=== PATIENT | male | born 1955 | race Caucasian/White ===

== ENCOUNTER 2018-02-10 10:15 | Emergency (ER) | payer SELFPAY ==
[~2018-02-10] VITALS: Ht 162.6 cm; Wt 62.0 kg
[~2018-02-10 10:15] MED LIST: LORT5TAB PO; METH500T3 PO
[2018-02-10 10:18] VITALS: BP 95/60; PULSE 57; RESP 17; TEMP 98.2; O2SAT 97
[2018-02-10 10:29] VITALS: O2SAT 100
[2018-02-10] MEDS ORDERED: SODIUM CHLOR 0.9% 1000 ML INJ 1,000 ML IV ONE (10:30)
[2018-02-10] MEDS ORDERED: LIDOCAINE 1%/EPINEPHrine 1:100,000 SOLN 50 ML VIAL INFIL ONE (10:30)
[2018-02-10] MEDS ORDERED: SUBO8MIS SL (10:30)
[2018-02-10] MEDS ORDERED: LIDOCAINE 1%/EPINEPHrine 1:100,000 SOLN 20 ML VIAL INFIL ONE (10:30)
[2018-02-10] MEDS ORDERED: TETANUS/DIPHTHERIA TOXOID ADULT 0.5 ML VIAL IM ONE (10:30)
--- NOTE | 2018-02-10 10:32 | PD ---
HPI Chief Complaint: Laceration/Skin Injury Time Seen by Provider: 10:23 Travel History International Travel<30 days: No Contact w/Intl Traveler<30days: No Traveled to known affect area: No History of Present Illness HPI 62-year-old male complains of laceration the right forearm. Patient accidentally lacerated his right forearm at work this morning. Patient states that he had moderate amount of blood from the wound at the scene. Pressure was applied to the wound patient came to ED for evaluation. Patient states that he is not up-to-date with TD booster. Patient denies any weakness or numbness of the forearm on the hand or the fingers. PFSH Past Medical History Arthritis: Yes Social History Alcohol Use: Yes (2-3 BEERS A DAY.) Tobacco Use: Yes (1 PPD) Substance Use: No Allergies-Medications (Allergen,Severity, Reaction): Coded Allergies: No Known Allergies (Verified Adverse Reaction, Unknown, 02/10/18) Reported Meds & Prescriptions Reported Meds & Active Scripts Active Reported Suboxone Sublingual Film (Buprenorphine-Naloxone Sublingual Film) 8-2 Mg Film 1 Film SL Unique ID number required: Review of Systems General / Constitutional: No: Fever Eyes: No: Visual changes HENT: No: Headaches Cardiovascular: No: Chest Pain or Discomfort Respiratory: No: Shortness of Breath Gastrointestinal: No: Abdominal Pain Genitourinary: No: Dysuria Musculoskeletal: No: Pain Skin: No Rash Neurologic: No: Weakness Psychiatric: No: Depression Endocrine: No: Polydipsia Hematologic/Lymphatic: No: Easy Bruising Physical Exam Narrative GENERAL: Well-nourished, well-developed patient. SKIN: Focused skin assessment warm/dry. HEAD: Normocephalic. EYES: No scleral icterus. No injection or drainage. NECK: Supple, trachea midline. No JVD or lymphadenopathy. CARDIOVASCULAR: Regular rate and rhythm without murmurs, gallops, or rubs. RESPIRATORY: Breath sounds equal bilaterally. No accessory muscle use. GASTROINTESTINAL: Abdomen soft, non-tender, nondistended. MUSCULOSKELETAL: No cyanosis, or edema. BACK: Nontender without obvious deformity. No CVA tenderness. Patient has 12 cm laceration the right forearm. The laceration deep to the muscle area. No active bleeding. Sensory motor function distally intact. Good radial pulses. Data Data Last Documented VS Vital Signs Date Time Temp Pulse Resp B/P (MAP) Pulse Ox O2 Delivery O2 Flow Rate FiO2 02/10/18 10:29 100 Room Air 02/10/18 10:18 98.2 57 17 95/60 (72) Orders Orders Sodium Chlor 0.9% 1000 Ml Inj (Ns 1000 M (02/10/18 10:30) Tetanus/Diphtheria Tox Adult (Tetanus/Di (02/10/18 10:30) Lidocai-Epi 1%-1:100,000 Inj (Xylocaine- (02/10/18 10:30) Lidocai-Epi 1%-1:100,000 Inj (Xylocaine- (02/10/18 10:30) Complete Blood Count With Diff (02/10/18 10:26) Basic Metabolic Panel (Bmp) (02/10/18 10:26) Iv Access Insert/Monitor (02/10/18 10:26) Ecg Monitoring (02/10/18 10:26) Oximetry (02/10/18 10:26) Labs Laboratory Tests Test 02/10/18 10:28 White Blood Count 8.2 TH/MM3 Red Blood Count 4.32 MIL/MM3 Hemoglobin 14.1 GM/DL Hematocrit 42.0 % Mean Corpuscular Volume 97.3 FL Mean Corpuscular Hemoglobin 32.8 PG Mean Corpuscular Hemoglobin Concent 33.7 % Red Cell Distribution Width 13.7 % Platelet Count 265 TH/MM3 Mean Platelet Volume 7.4 FL Neutrophils (%) (Auto) 50.7 % Lymphocytes (%) (Auto) 36.1 % Monocytes (%) (Auto) 10.8 % Eosinophils (%) (Auto) 1.9 % Basophils (%) (Auto) 0.5 % Neutrophils # (Auto) 4.2 TH/MM3 Lymphocytes # (Auto) 3.0 TH/MM3 Monocytes # (Auto) 0.9 TH/MM3 Eosinophils # (Auto) 0.2 TH/MM3 Basophils # (Auto) 0.0 TH/MM3 CBC Comment DIFF FINAL Differential Comment Blood Urea Nitrogen 15 MG/DL Creatinine 1.11 MG/DL Random Glucose 128 MG/DL Calcium Level 9.1 MG/DL Sodium Level 141 MEQ/L Potassium Level 3.6 MEQ/L Chloride Level 106 MEQ/L Carbon Dioxide Level 26.3 MEQ/L Anion Gap 9 MEQ/L Estimat Glomerular Filtration Rate 67 ML/MIN MDM Medical Decision Making Medical Screen Exam Complete: Yes Emergency Medical Condition: Yes Differential Diagnosis Differential diagnosis including laceration, nerve injury, ligament injury, tendon injury. Narrative Course 62-year-old male with right forearm laceration. Td booster given. Normal saline solution 1 L IV bolus. Diagnosis Primary Impression: Laceration of right forearm Patient Instructions: General Instructions Additional Instructions: Wound care daily. Suture removal in 14 days. Med/Other Pt SpecificInfo: Prescription(s) given Scripts Cephalexin (Keflex) 500 Mg Capsule 500 MG PO TID for Infection, #15 CAP 0 Refills Prov: Ollie Shah MD 02/10/18 Disposition: 01 DISCHARGE HOME Condition: Stable Ollie Shah MD February 10, 2018 10:32
[2018-02-10 11:12] LABS: AUTOMATED NEUTROPHIL # 4.2 TH/MM3 (1.8-7.7); BASOPHIL % 0.5 % (0.0-2.0); EOSINOPHIL # 0.2 TH/MM3 (0-0.4); EOSINOPHIL % 1.9 % (0.0-4.0); HEMOGLOBIN 14.1 GM/DL (13.0-17.0); LYMPH % 36.1 % (9.0-44.0); MEAN CELL VOLUME 97.3 FL (80.0-100.0); MEAN CORPUSCULAR HEMOGLOBIN 32.8 PG (27.0-34.0); MEAN CORPUSCULAR HGB CONC 33.7 % (32.0-36.0); MEAN PLATELET VOLUME 7.4 FL (7.0-11.0); MONO % 10.8 % (0.0-8.0); MONOCYTE # 0.9 TH/MM3 (0-0.9); NEUT % 50.7 % (16.0-70.0); PLATELET COUNT 265 TH/MM3 (150-450); RED BLOOD COUNT 4.32 MIL/MM3 (4.50-5.90); RED CELL DISTRIBUTION WIDTH 13.7 % (11.6-17.2); WHITE BLOOD COUNT 8.2 TH/MM3 (4.0-11.0)
[2018-02-10 11:30] LABS: BICARBONATE 26.3 MEQ/L (21.0-32.0); CALCIUM 9.1 MG/DL (8.5-10.1); CREATININE 1.11 MG/DL (0.60-1.30)
--- NOTE | 2018-02-10 12:00 | PD ---
Data Data Last Documented VS Vital Signs Date Time Temp Pulse Resp B/P (MAP) Pulse Ox O2 Delivery O2 Flow Rate FiO2 02/10/18 10:29 100 Room Air 02/10/18 10:18 98.2 57 17 95/60 (72) Orders Orders Sodium Chlor 0.9% 1000 Ml Inj (Ns 1000 M (02/10/18 10:30) Tetanus/Diphtheria Tox Adult (Tetanus/Di (02/10/18 10:30) Lidocai-Epi 1%-1:100,000 Inj (Xylocaine- (02/10/18 10:30) Lidocai-Epi 1%-1:100,000 Inj (Xylocaine- (02/10/18 10:30) Complete Blood Count With Diff (02/10/18 10:26) Basic Metabolic Panel (Bmp) (02/10/18 10:26) Iv Access Insert/Monitor (02/10/18 10:26) Ecg Monitoring (02/10/18 10:26) Oximetry (02/10/18 10:26) Labs Laboratory Tests Test 02/10/18 10:28 White Blood Count 8.2 TH/MM3 Red Blood Count 4.32 MIL/MM3 Hemoglobin 14.1 GM/DL Hematocrit 42.0 % Mean Corpuscular Volume 97.3 FL Mean Corpuscular Hemoglobin 32.8 PG Mean Corpuscular Hemoglobin Concent 33.7 % Red Cell Distribution Width 13.7 % Platelet Count 265 TH/MM3 Mean Platelet Volume 7.4 FL Neutrophils (%) (Auto) 50.7 % Lymphocytes (%) (Auto) 36.1 % Monocytes (%) (Auto) 10.8 % Eosinophils (%) (Auto) 1.9 % Basophils (%) (Auto) 0.5 % Neutrophils # (Auto) 4.2 TH/MM3 Lymphocytes # (Auto) 3.0 TH/MM3 Monocytes # (Auto) 0.9 TH/MM3 Eosinophils # (Auto) 0.2 TH/MM3 Basophils # (Auto) 0.0 TH/MM3 CBC Comment DIFF FINAL Differential Comment Blood Urea Nitrogen 15 MG/DL Creatinine 1.11 MG/DL Random Glucose 128 MG/DL Calcium Level 9.1 MG/DL Sodium Level 141 MEQ/L Potassium Level 3.6 MEQ/L Chloride Level 106 MEQ/L Carbon Dioxide Level 26.3 MEQ/L Anion Gap 9 MEQ/L Estimat Glomerular Filtration Rate 67 ML/MIN [facility] Medical Record Reviewed: Yes Supervised Visit with TIMUR: No Narrative Course The patient has large laceration of the right forearm which I was asked to repair. He verbally consents. Procedures Procedure Narrative LACERATION LOCATION: Right forearm LENGTH: 10 cm NUMBER OF STITCHES/TONIE: 15 REPAIR: The area of the laceration was prepped with Betadine and sterilely draped. The laceration was infiltrated with 1% lidocaine with epinephrine. The wound was copiously irrigated and explored without evidence of foreign body , tendon injury or neurovascular injury. The wound was closed using 4-0 Prolene simple interrupted. This was a single layer repair. A sterile dressing was applied. The patient was advised to keep the dressing clean and dry. Patient tolerated the procedure well. Diagnosis Primary Impression: Laceration of right forearm Thony Hoang February 10, 2018 12:00
[2018-02-10] MEDS ORDERED: CEPH-460 PO (12:03)
== END 2018-02-10 12:46 | disposition home or self-care (01) ==
LOC: NEPC 10:15
DX: S51.811A Laceration without foreign body of right forearm, initial encounter (principal); X58.XXXA Exposure to other specified factors, initial encounter; Z23 Encounter for immunization
CPT/HCPCS: 12004; 80048; 85025; 90471; 90714; 96360; 99284; J7030